=== PATIENT | female | born 1965 | race Caucasian/White ===

== ENCOUNTER 2018-06-10 01:39 | Outpatient (CLI) | payer BC, SELFPAY ==
--- NOTE | 2018-06-10 13:47 | DI.MAMMO_ITS ---
SYMPTOMS/DIAGNOSIS: ABNL MAMMO, R92.8, 6 MO F/U MAMMOGRAM: Mammograms were interpreted according to the usual protocol including computer analysis with CAD system, tomosynthesis and C view imaging. The breast tissue is of moderate radiodensity. There is no apparent mass. There are no suspicious calcifications and there has been no appreciable interval change when compared with the prior study. SUMMARY: No evidence of malignancy, Category I, annual screening mammography is recommended. Breast density Category C. SA ASSESSMENT OF FINDINGS: Negative. Category 1. Patient will receive a letter notifying them of these results. Bi-RADS category C. The breasts are heterogeneously dense, which may obscure small masses.
== END 2018-06-10 01:59 ==
PROVIDERS: PCP Family Medicine; Visit Provider Family Medicine
DX: Z12.31 Encounter for screening mammogram for malignant neoplasm of breast (principal); N64.59 Other signs and symptoms in breast; R92.8 Other abnormal and inconclusive findings on diagnostic imaging of breast
CPT/HCPCS: 77062; 77066; G0279

== ENCOUNTER 2018-07-22 08:24 | Outpatient (REF) | payer BC, SELFPAY ==
[2018-07-22 13:19] LABS: HCT 33.6 % (36.0-46.0); HGB 10.1 g/dL (12.0-15.5); Mean Corp. HGB Concentration 30.1 g/dL (32.0-36.0); Mean Corpuscular Volume 66.5 fL (80-95); Mean Platelet Volume 11.3 fL (8.0-11.0); Platelet Count 350 x1000/uL (130-400); RBC 5.05 m/cumm (4.00-5.20); RBC Distribution Width 19.5 % (11.7-14.6); White Blood Cell Count 5.89 k/cumm (4.4-10.8)
[2018-07-22 13:52] LABS: ALT 24 U/L (12-78); AST 16 U/L (15-37); Alkaline Phosphatase 93 U/L (46-116); Anion Gap 10.4 mmol/L (3-11); BUN 12 mg/dL (7-18); Bilirubin, Total 0.3 mg/dL (0.2-1.0); CO2 25.6 mmol/L (21.0-32.0); CREATININE 0.79 mg/dL (0.55-1.02); Calcium 9.5 mg/dL (8.5-10.1); Chloride 103 mmol/L (98-107); Cholesterol 183 mg/dL (50-200); Glucose 126 mg/dL (70-100); HDL Cholesterol 51 mg/dL (40-60); LDL CHOLESTEROL 104 mg/dL (<100); Potassium 4.6 mmol/L (3.5-5.1); Sodium 139 mmol/L (136-145); Total Protein 7.5 g/dL (6.4-8.2); Triglyceride 202 mg/dL (30-150)
[2018-07-22 14:13] LABS: Hemoglobin A1C 6.4 % (4.5-6.2)
== END 2018-07-22 08:44 ==
LOC: NCHCN 08:24
PROVIDERS: PCP Family Medicine; Visit Provider Family Medicine
DX: R03.0 Elevated blood-pressure reading, without diagnosis of hypertension (principal); E11.9 Type 2 diabetes mellitus without complications; F32.9 Major depressive disorder, single episode, unspecified; E66.9 Obesity, unspecified
CPT/HCPCS: 80053; 80061; 83721; 85027; 83036